=== PATIENT | female | born 1995 | race Caucasian/White ===

== ENCOUNTER 2018-06-30 18:51 | Emergency (ER) | payer OTHER ==
[2018-06-30] MEDS: valACYclovir HCL 500 MG TAB PO (21:36)
[2018-06-30] MEDS ORDERED: ONDANSETRON 4 MG ORAL DISINTEGRATING TAB (Q0162 PER 1MG) PO (21:45)
== END 2018-06-30 21:47 | disposition home or self-care (01) ==
LOC: M ED 18:51
DX: B02.9 Zoster without complications (principal); K21.9 Gastro-esophageal reflux disease without esophagitis; Z79.899 Other long term (current) drug therapy
CPT/HCPCS: 81025

== ENCOUNTER 2018-07-14 07:22 | Emergency (ER) | payer OTHER ==
[2018-07-14 08:22] LABS: HEMATOCRIT 41.1 % (36.0-47.0); HEMOGLOBIN 14.4 g/dl (12.0-15.5); MEAN CORPUSCULAR HEMOGLOBIN 31.8 pg (27.0-33.0); MEAN CORPUSCULAR VOLUME 90.7 fl (80.0-96.0); PLATELET COUNT, AUTOMATED 229 10^3/uL (150-450); RED BLOOD COUNT 4.53 10^6/uL (4.00-5.40); RED CELL DISTRIBUTION WIDTH 12.5 % (11.5-14.5); WHITE BLOOD COUNT 8.9 10^3/uL (4.0-10.0)
[2018-07-14 08:42] LABS: CONTROL LINE HCG INT CTR LINE PRESENT; HCG, SERUM QUALITATIVE NEGATIVE (NEGATIVE)
[2018-07-14 10:21] LABS: CHLAMYDIA DNA AMPLIFICATION NEGATIVE (NEGATIVE); GC DNA AMPLIFICATION NEGATIVE (NEGATIVE)
== END 2018-07-14 11:58 | disposition home or self-care (01) ==
LOC: M ED 07:22
DX: N83.202 Unspecified ovarian cyst, left side (principal); B02.9 Zoster without complications; Z87.42 Personal history of other diseases of the female genital tract; Z79.899 Other long term (current) drug therapy
CPT/HCPCS: 76856

== ENCOUNTER 2019-01-02 18:41 | Outpatient (CLI) | payer OTHER ==
[~2019-01-02] VITALS: Ht 154.9 cm; Wt 63.9 kg
[~2019-01-02 18:41] MED LIST: GABA-843 PO; KETO10TAB PO; OMEP40CA2 PO; VALA1TAB2 PO
[2019-01-02 18:55] VITALS: BP 101/62
[2019-01-02] MEDS ORDERED: MACR100C43 PO (19:02)
[2019-01-02] MEDS ORDERED: PRENTAB9 PO (19:02)
== END 2019-01-02 20:20 | disposition home or self-care (01) ==
LOC: M LDO 18:41
PROVIDERS: ATTEND Obstetrics & Gynecology
DX: O26.852 Spotting complicating pregnancy, second trimester (principal); Z3A.20 20 weeks gestation of pregnancy
CPT/HCPCS: G0378; G0463

== ENCOUNTER → 2019-01-26 | Outpatient (CLI) | payer OTHER ==
[~2019-01-26] MED LIST changes: +MACR100C43 PO; +PRENTAB9 PO
--- NOTE | 2019-01-27 05:23 | REP ---
Clinical: Anatomical evaluation. Comparison: None . Findings: Examination demonstrates a single live intrauterine in cephalic presentation. motion is identified by technologist. Placenta is noted anterior and grade grade zero without evidence for placenta previa or abruption. Amniotic fluid volume is normal. Cervix measures 3.3 cm in length and appears closed. Nuchal cord cannot be excluded. Gestational age by LMP 23 weeks 3 days with FREDI 05/22/2019 . Gestational age by current measurements 23 weeks 0-day with FREDI 05/25/2019 . FHR equals 147 beats per minute. BPD 5.7 cm 23 weeks 2 days HC 21.1 cm 23 weeks 1 day AC 18.4 cm 23 weeks 2 days FL 3.9 cm 22 weeks 3 days HL 3.7 cm 23 weeks 0 days HC/AC ratio 1.14 Estimated weight 549 grams ( 32nd percentile). Anatomical assessment demonstrates normal structures including cranium, choroid plexus, cavum, cerebellum/posterior fossa, lungs, diaphragm, stomach, cord insertion/three-vessel cord, kidneys/bladder, spine, and extremities. Impression: 1. Single live intrauterine in cephalic presentation demonstrating appropriate interval growth. 2. Limited evaluation of the facial features and heart/ventricular outflow tracts. Remainder of the anatomical assessment is complete and normal. 3. Nuchal cord cannot be excluded. Electronically Signed by Zack Wray MD 01/27/2019 05:15 A
== END ==
LOC: M RAD 09:42
PROVIDERS: ATTEND Advanced Practice Midwife
DX: Z34.82 Encounter for supervision of other normal pregnancy, second trimester (principal)

== ENCOUNTER → 2019-01-26 | Outpatient (CLI) | payer OTHER ==
[2019-01-26 13:09] LABS: CHLAMYDIA DNA AMPLIFICATION NEGATIVE (NEGATIVE); GC DNA AMPLIFICATION NEGATIVE (NEGATIVE)
[2019-01-27 10:00] LABS: HEPATITIS C VIRUS ABY INDEX < 0.0 INDEX (<0.8); HIV 1&2 SCREEN CENTAUR NEGATIVE (NEGATIVE)
== END ==
LOC: M LAB 10:21
PROVIDERS: ATTEND Advanced Practice Midwife
DX: Z34.82 Encounter for supervision of other normal pregnancy, second trimester (principal); Z3A.23 23 weeks gestation of pregnancy

== ENCOUNTER → 2019-02-17 | Outpatient (CLI) | payer OTHER ==
[2019-02-17 13:24] LABS: BASO # 0.1 10^3/uL (0.0-0.2); BASO % 0.6 % (0.0-1.0); EOS # 0.1 10^3/uL (0.0-0.50); EOS % 0.7 % (0.0-3.0); HEMATOCRIT 36.5 % (36.0-47.0); HEMOGLOBIN 12.4 g/dl (12.0-15.5); LYMPH # 1.8 10^3/uL (1.5-6.5); LYMPH % 15.1 % (24.0-44.0); MEAN CORPUSCULAR VOLUME 94.3 fl (80.0-96.0); MONO # 0.9 10^3/uL (0.0-0.8); MONO % 7.1 % (0.0-5.0); NEUTROPHILS # 9.1 10^3/uL (1.8-7.7); NEUTROPHILS % 74.2 % (36.0-66.0); PLATELET COUNT, AUTOMATED 145 10^3/uL (150-450); RED BLOOD COUNT 3.87 10^6/uL (4.00-5.40); WHITE BLOOD COUNT 12.2 10^3/uL (4.0-10.0)
== END ==
LOC: M LAB 11:50
PROVIDERS: ATTEND Advanced Practice Midwife
DX: Z34.02 Encounter for supervision of normal first pregnancy, second trimester (principal); Z3A.00 Weeks of gestation of pregnancy not specified

== ENCOUNTER → 2019-02-17 | Outpatient (REF) | payer OTHER | LOC: M LAB REF 13:02 | PROVIDERS: ATTEND Advanced Practice Midwife | DX: Z34.02 Encounter for supervision of normal first pregnancy, second trimester (principal) ==

== ENCOUNTER → 2019-02-19 | Outpatient (CLI) | payer OTHER ==
--- NOTE | 2019-02-19 15:43 | REP ---
Clinical: Anatomical evaluation. Comparison: 01/26/2019 . Findings: Examination demonstrates a single live intrauterine in cephalic presentation. motion is identified by technologist. Placenta is noted anterior and grade 09/00 without evidence for placenta previa or abruption. Amniotic fluid volume is normal. Cervix measures 2.2 cm in length and appears closed. Nuchal cord cannot be excluded Gestational age by LMP 26 weeks 6 days with FREDI 05/22/2019 . Gestational age by current measurements 27 weeks 2 days with FREDI 05/19/2019 . FHR equals 134 beats per minute. Estimated weight 1027 grams ( 47th percentile). Anatomical assessment demonstrates normal structures including cranium, choroid plexus, cavum, cerebellum/posterior fossa, facial features, lungs, four-chamber heart/ventricular outflow tracts, diaphragm, stomach, cord insertion/three-vessel cord, kidneys/bladder, spine, and extremities. Impression: 1. Single live intrauterine in cephalic presentation demonstrating appropriate interval growth. 2. Cervix measures 2.2 cm in length with a closed internal os. 3. Nuchal cord cannot be excluded. 4. With the exception of incomplete evaluation of the the facial profile, anatomical assessment is complete and normal. Electronically Signed by Zack Wray MD 02/19/2019 03:34 P
== END ==
LOC: M RAD 14:35
PROVIDERS: ATTEND Advanced Practice Midwife
DX: Z34.02 Encounter for supervision of normal first pregnancy, second trimester (principal); Z36.2 Encounter for other antenatal screening follow-up; Z3A.26 26 weeks gestation of pregnancy

== ENCOUNTER 2019-04-09 05:21 | Inpatient (IN) | payer OTHER ==
[~2019-04-09] VITALS: Ht 154.9 cm; Wt 75.4 kg
[2019-04-09] VITALS (9 sets, daily range): BP systolic 104–122; BP diastolic 56–83
[2019-04-09] MEDS ORDERED: ZANTTAB PO (05:52)
[2019-04-09] MEDS ORDERED: OXYTOCIN 30 UNITS IN 0.9% NaCl 500ML IV BAG (J2590) As Ordered ONE (07:07)
[2019-04-09] MEDS ORDERED: PENICILLIN G POTASSIUM IV 5 MU in D5W MINI-BAG PLUS 100 ML IV STA (07:13)
[2019-04-09] MEDS ORDERED: LACTATED RINGER'S 1000 ML IV STA (07:13)
[2019-04-09] MEDS ORDERED: LR 1,000 ML IV SCH ×2 (07:13→07:50)
--- NOTE | 2019-04-09 07:13 | NUR ---
L&D H&P HPI: 23 year old at weeks estimated gestation. Expected date of confinement: 05/22/19. dated by a 7 week ultrasound. Presents today complaining of b loody show and painful uterine contractions. Denies loss of fluid. Reports regular movement. course uncomplicated thus far. labs: Blood type O+, antibody screen negative, rubella immune, VDRL nonreactive , hepatitis B surface antigen negative, HIV negative, hepatitis C an tibody negative, GC/CT negative, aneuploidy/maternal serum screening: none, 1 hour glucose challenge test: 115, GBS unknown. Vaccinations: Tdap 03/22/19 Radiology/OB US: no anomalies or placental abnormalities detected. History Past medical history: none Surgical history: D&C, l/s for ovarian cyst, appendectomy, tonsillectomy Medications: PNV Allergies: NKDA WOOL BROKER history: no dysplasia or STI/gHSV OB history: G1 Social history: no t/e/d Family history: HTN, heart disease, RA Objective Vitals: Normotensive, normal heart rate, afebrile Heart: Regular rate and rhythm. No murmurs, rubs or gallops. Lungs: Clear to auscultation bilaterally. No wheezes, crackles, rales or rhonchi. Abdomen: Uterine fundal height consistent with dates. No guarding or rebound tenderness. Extremities: No clubbing, cyanosis or edema. Normal deep tendon reflexes. Sterile vaginal exam: 10 cm, 100 %effacement, +1station, cephalic, intact External monitoring: heart rate category 1 Tocodynamometer: contractions occurring every 2-4 min Assessment/Plan 23 year old at 33+6 weeks gestation. Diagnosis: active labor. Reassuring and maternal status. -Admit to labor and delivery with routine labs and orders -External monitoring and tocodynamometer -NICU and anesthesia notified -Anticipate delivery soon. Dr. Robert Clemente, DO, FACOG
[2019-04-09 07:32] LABS: HEMATOCRIT 37.1 % (36.0-47.0); HEMOGLOBIN 12.8 g/dl (12.0-15.5); MEAN CORPUSCULAR HEMOGLOBIN 32.2 pg (27.0-33.0); MEAN CORPUSCULAR HGB CONC 34.5 g/dl (32.0-36.5); MEAN CORPUSCULAR VOLUME 93.5 fl (80.0-96.0); PLATELET COUNT, AUTOMATED 161 10^3/uL (150-450); RED BLOOD COUNT 3.97 10^6/uL (4.00-5.40); WHITE BLOOD COUNT 15.5 10^3/uL (4.0-10.0)
[2019-04-09] MEDS ORDERED: OXYTOCIN DRIP 30 UNITS in APPROPRIATE DILUENT 1 EA IV SCH (07:50)
[2019-04-09] MEDS ORDERED: ONDANSETRON 4MG/2ML VIAL (J2405) IV PRN (08:00)
[2019-04-09] MEDS ORDERED: LIDOCAINE 1% MDV 20ML VIAL INFIL ONE (08:00)
[2019-04-09] MEDS ORDERED: ACETAMINOPHEN TAB 650MG DOSE (2X325MG) PO PRN (08:00)
[2019-04-09] MEDS ORDERED: MEASLES,MUMPS,RUBELLA VACCINE INJ (MMR-II) (90707) SC SCH (08:00)
[2019-04-09] MEDS ORDERED: DOCUSATE SODIUM 100 MG CAP PO PRN (08:00)
[2019-04-09] MEDS ORDERED: PROMETHAZINE 25 MG TAB PO PRN (08:00)
[2019-04-09] MEDS ORDERED: RHOGAM 300 MCG (1500 IU) INJ (J2790) IM SCH (08:00)
[2019-04-09] MEDS ORDERED: DIBUCAINE 1% OINTMENT 30GM TOP PRN (08:00)
--- NOTE | 2019-04-09 08:06 | NUR ---
Delivery note Spontaneous vaginal delivery labor, spontaneous Estimated gestational age at delivery: 33+6 weeks The active phase and second stage of labor progressed in normal fashion without epidural anesthesia. Patient did not receive Pitocin labor augmentation. She did not received a full course of GBS prophylaxis. The head delivered left occiput anterior and restituted left occiput transverse. A tight nuchal cord was noted. The anterior shoulder delivered with gentle downward guidance and the remainder of the body delivered with ease. The nuchal cord was reduced. Cord clamping was delayed for approximately 1 minute after delivery. After doubly clamping the cord, I cut the cord. The was placed on the patient's chest for immediate bonding. Capac data: Apgars 7 and 8. weight 2128 grams 4 pounds, 11 ounces. Time of delivery: 728. Sex: Male. The third stage of labor was actively managed with a bolus of IV Pitocin (30 units in 500 mL of normal saline). The placenta delivered completely intact with no missing cotyledons at 0733. A three-vessel cord with a central insertion was noted. After delivery of the placenta, the uterine fundus was approximately 2 c m below the umbilicus and firm. IV Pitocin was continued to maintain uterine tone. A normal, low level of uterine bleeding was noted. The cervix, vagina, vulva and perineum were inspected for lacerations. A first degree laceration was noted. This was repaired with 3-0 Vicryl in typical fashio n. Excellent hemostasis was noted. Estimated blood loss: 200ml All sponges, needles, and instruments were accounted for per LOSS PREVENTION/SAFETY DISTRICT MANAGER department protocol. Robert Clemente D.O., F.A.C.OElma.
[2019-04-09] MEDS: IBUPROFEN 800 MG TAB PO PRN (08:21)
[2019-04-09] MEDS: PRENATAL VITAMINS CHEWABLE TABLET PO SCH (09:00)
[2019-04-09 10:10] LABS: AMPHETAMINES URINE REFLEX NEGATIVE (NEGATIVE); BARBITURATES URINE REFLEX NEGATIVE (NEGATIVE); BENZODIAZEPINES URINE REFLEX NEGATIVE (NEGATIVE); CANNABINOIDS URINE REFLEX NEGATIVE (NEGATIVE); COCAINE METABOLITE URINE REFLE NEGATIVE (NEGATIVE); METHADONE URINE REFLEX NEGATIVE (NEGATIVE); OPIATES URINE REFLEX NEGATIVE (NEGATIVE); PHENCYCLIDINE URINE REFLEX NEGATIVE (NEGATIVE)
[2019-04-09] MEDS: IBUPROFEN 600 MG TAB PO PRN ×2 (17:10→22:18)
[2019-04-10] MEDS: ACETAMINOPHEN 500 MG TAB PO PRN ×3 (02:50→22:25)
[2019-04-10] MEDS: IBUPROFEN 600 MG TAB PO PRN ×3 (05:29→18:45)
[2019-04-10 06:00] VITALS: BP 108/64
[2019-04-10] MEDS: PRENATAL VITAMINS CHEWABLE TABLET PO SCH (08:56)
[2019-04-10 18:18] VITALS: BP 115/68
[2019-04-10] MEDS: IBUPROFEN 800 MG TAB PO PRN (23:55)
[2019-04-11 06:41] VITALS: BP 122/58
[2019-04-11] MEDS: ACETAMINOPHEN 500 MG TAB PO PRN (06:43)
[2019-04-11] MEDS: PRENATAL VITAMINS CHEWABLE TABLET PO SCH (08:13)
[2019-04-11] MEDS: IBUPROFEN 800 MG TAB PO PRN (08:13)
[2019-04-11] MEDS ORDERED: MAPA500T2 PO (09:55)
[2019-04-11] MEDS ORDERED: IBUP-1114 PO (09:55)
== END 2019-04-11 10:30 | disposition home or self-care (01) | DRG 807 ==
LOC: M LDO 05:21 → M LDI 06:44 → M OBS 09:35
PROVIDERS: ADMIT Obstetrics & Gynecology; ATTEND Obstetrics & Gynecology
PROC: 10E0XZZ Delivery of Products of Conception, External Approach (ICD-10-PCS; principal; 2019-04-09)
PROC: 0HQ9XZZ Repair Perineum Skin, External Approach (ICD-10-PCS; 2019-04-09)
DX: O60.14X0 Preterm labor third trimester with preterm delivery third trimester, not applicable or unspecified (principal); Z37.0 Single live birth; Z3A.33 33 weeks gestation of pregnancy; O70.0 First degree perineal laceration during delivery; O69.89X0 Labor and delivery complicated by other cord complications, not applicable or unspecified

== ENCOUNTER → 2019-07-11 | Outpatient (CLI) | payer OTHER ==
[~2019-07-11] MED LIST changes: +IBUP-1114 PO; +MAPA500T2 PO; +ZANT150T40 PO
--- NOTE | 2019-07-12 12:10 | REP ---
LEFT FIFTH FINGER SERIES: 07/11/2019. Clinical history: Pain left fifth finger. Findings: Four views show metacarpal and phalanges of the fifth digit without fracture or focal lesion. There is no avulsion. IP and MCP joints are intact. The adjacent digits and carpal bones are unremarkable. Impression: 1. No visible fracture, avulsion, foreign body or other acute finding about the left fifth finger. Electronically Signed by Chandu Trejo MD 07/12/2019 12:24 P
== END ==
LOC: M WUC 10:58
PROVIDERS: ATTEND Physician Assistant
DX: M79.645 Pain in left finger(s) (principal)

== ENCOUNTER 2019-07-24 19:42 | Emergency (ER) | payer OTHER ==
[~2019-07-24] VITALS: Ht 154.9 cm; Wt 65.9 kg
[2019-07-24 21:18] LABS: BASO # 0.1 10^3/uL (0.0-0.2); BASO % 0.9 % (0.0-1.0); EOS # 0.1 10^3/uL (0.0-0.50); EOS % 1.2 % (0.0-3.0); HEMATOCRIT 37.9 % (36.0-47.0); LYMPH # 1.6 10^3/uL (1.5-6.5); LYMPH % 27.5 % (24.0-44.0); MEAN CORPUSCULAR HEMOGLOBIN 30.1 pg (27.0-33.0); MEAN CORPUSCULAR HGB CONC 34.3 g/dl (32.0-36.5); MEAN CORPUSCULAR VOLUME 87.7 fl (80.0-96.0); MONO # 0.5 10^3/uL (0.0-0.8); MONO % 9.2 % (0.0-5.0); NEUTROPHILS # 3.4 10^3/uL (1.8-7.7); NEUTROPHILS % 60.8 % (36.0-66.0); PLATELET COUNT, AUTOMATED 228 10^3/uL (150-450); RED BLOOD COUNT 4.32 10^6/uL (4.00-5.40); WHITE BLOOD COUNT 5.6 10^3/uL (4.0-10.0)
[2019-07-24 21:31] LABS: ALT/SGPT 27 U/L (12-78); BILIRUBIN,TOTAL 0.3 MG/DL (0.2-1.0); BLOOD UREA NITROGEN 13 MG/DL (7-18); CALCIUM LEVEL 9.1 MG/DL (8.5-10.1); CARBON DIOXIDE LEVEL 31 MEQ/L (21-32); CHLORIDE LEVEL 107 MEQ/L (98-107); CREATININE FOR GFR 0.74 MG/DL (0.55-1.30); GLOMERULAR FILTRATION RATE > 60.0 (>60); GLUCOSE, FASTING 158 MG/DL (70-100); POTASSIUM SERUM 3.6 MEQ/L (3.5-5.1); SODIUM LEVEL 143 MEQ/L (136-145); TOTAL PROTEIN 7.1 GM/DL (6.4-8.2)
[2019-07-24] MEDS ORDERED: FLON1SPR NARES (22:02)
[2019-07-24] MEDS ORDERED: MUCI30TA5 PO (22:02)
[2019-07-24] MEDS ORDERED: ONDA4TAB6 PO (22:02)
[2019-07-24] MEDS ORDERED: PSEU30TA85 PO (22:02)
[2019-07-24] MEDS ORDERED: ONDANSETRON 4 MG ORAL DISINTEGRATING TAB (Q0162 PER 1MG) PO ONE (22:15)
[2019-07-24 22:43] VITALS: BP 117/68
== END 2019-07-24 22:46 | disposition home or self-care (01) ==
LOC: M ED 19:42
DX: J06.9 Acute upper respiratory infection, unspecified (principal); H69.90 Unspecified Eustachian tube disorder, unspecified ear; Z79.899 Other long term (current) drug therapy
CPT/HCPCS: 36415; 80053; 84702; 85025; 99284; Q0162

== ENCOUNTER 2019-08-29 15:41 | Emergency (ER) | payer OTHER ==
[~2019-08-29] VITALS: Ht 154.9 cm; Wt 63.6 kg
[~2019-08-29 15:41] MED LIST changes: +FLON1SPR NARES; +MUCI30TA5 PO; -OMEP40CA2 PO; +OMEP40CA97 PO; +ONDA4TAB6 PO; +PSEU30TA85 PO
[2019-08-29 16:54] LABS: BASO # 0.1 10^3/uL (0.0-0.2); EOS # 0.2 10^3/uL (0.0-0.5); EOS % 2.9 % (0.0-3.0); HEMATOCRIT 36.5 % (36.0-47.0); HEMOGLOBIN 12.5 g/dl (12.0-15.5); LYMPH # 2.4 10^3/uL (1.5-5.0); LYMPH % 33.7 % (24.0-44.0); MEAN CORPUSCULAR HEMOGLOBIN 30.5 pg (27.0-33.0); MEAN CORPUSCULAR HGB CONC 34.2 g/dl (32.0-36.5); MONO # 0.7 10^3/uL (0.0-0.8); MONO % 9.8 % (0.0-5.0); NEUTROPHILS # 3.7 10^3/uL (1.5-8.5); NEUTROPHILS % 52.5 % (36.0-66.0); PLATELET COUNT, AUTOMATED 231 10^3/uL (150-450)
[2019-08-29] MEDS ORDERED: KETOROLAC 30 MG/ML VIAL (J1885) IV ONE (17:15)
[2019-08-29] MEDS ORDERED: NS 1,000 ML IV ONE (17:15)
[2019-08-29 18:28] VITALS: BP 116/72
[2019-08-29] MEDS ORDERED: KETO10TAB PO (20:12)
--- NOTE | 2019-08-29 20:13 | REPVR ---
PROCEDURE INFORMATION: Exam: US Pelvis Complete, Transabdominal and US Pelvis, Transvaginal Exam date and time: 08/29/2019 6:40 PM Clinical history: 24 years old, female; Menstruation abnormalities; Excessive menstruation; With irregular cycle; Pelvic pain; Additional info: Vag bleeding 2 wks, llq pain, HX ov cyst surgical TECHNIQUE: Imaging protocol: Real-time transabdominal and transvaginal pelvic ultrasound (complete) with image documentation. Transvaginal imaging was used for better evaluation of the endometrium and adnexa. COMPARISON: US PELVIC NON-OB COMPLETE 07/14/2018 10:01 AM FINDINGS: Uterus/cervix: 7.7 x 3.3 x 5.9 cm. Normal endometrial thickness, measuring approximately 11 mm. Right ovary: 3.1 x 2.5 x 2 cm. Multiple follicles. No mass. Normal ovarian blood flow. Left ovary: 2.9 x 1.9 x 1.7 cm. Multiple follicles. No mass. Normal ovarian blood flow. Free fluid: Trace nonspecific free pelvic fluid, likely physiologic. Bladder: Normal. IMPRESSION: No acute sonographic findings. Electronically signed by: Abraham Garland On 08/29/2019 20:13:35 PM
== END 2019-08-29 20:18 | disposition home or self-care (01) ==
LOC: M ED 15:41
DX: N92.1 Excessive and frequent menstruation with irregular cycle (principal); Z79.899 Other long term (current) drug therapy
CPT/HCPCS: 76830; 76856; 84702; 85025; 86901; 93976; 96361; 96374; 99284; J1885

== ENCOUNTER 2019-09-28 15:45 | Inpatient (IN) | payer OTHER ==
[~2019-09-28] VITALS: Ht 154.9 cm; Wt 65.0 kg
[2019-09-28 17:05] LABS: HEMATOCRIT 41.6 % (36.0-47.0); HEMOGLOBIN 13.8 g/dl (12.0-15.5); MEAN CORPUSCULAR HEMOGLOBIN 29.9 pg (27.0-33.0); MEAN CORPUSCULAR HGB CONC 33.2 g/dl (32.0-36.5); MEAN CORPUSCULAR VOLUME 90.2 fl (80.0-96.0); PLATELET COUNT, AUTOMATED 233 10^3/uL (150-450); RED BLOOD COUNT 4.61 10^6/uL (4.00-5.40)
[2019-09-28 17:27] LABS: HCG, SERUM QUALITATIVE POSITIVE (NEGATIVE)
[2019-09-28 17:29] LABS: AMPHETAMINES LEVEL URINE NEGATIVE (NEGATIVE); BARBITURATES URINE NEGATIVE (NEGATIVE); BENZODIAZEPINES URINE NEGATIVE (NEGATIVE); CANNABINOIDS URINE POSITIVE (NEGATIVE); COCAINE METABOLITE URINE NEGATIVE (NEGATIVE); METHADONE URINE NEGATIVE (NEGATIVE); OPIATES URINE NEGATIVE (NEGATIVE); PHENCYCLIDINE URINE NEGATIVE (NEGATIVE)
[2019-09-28 17:41] LABS: ACETAMINOPHEN LEVEL < 2.0 UG/ML (10.0-30.0); ALBUMIN 4.1 GM/DL (3.2-5.2); ALT/SGPT 20 U/L (12-78); BILIRUBIN,DIRECT < 0.1 MG/DL (0.0-0.2); BILIRUBIN,TOTAL 0.3 MG/DL (0.2-1.0); BLOOD UREA NITROGEN 10 MG/DL (7-18); CALCIUM LEVEL 8.6 MG/DL (8.5-10.1); CARBON DIOXIDE LEVEL 26 MEQ/L (21-32); CHLORIDE LEVEL 107 MEQ/L (98-107); CREATININE FOR GFR 0.67 MG/DL (0.55-1.30); ETHYL ALCOHOL (ETHANOL) < 0.003 % (0.000-0.010); GLOMERULAR FILTRATION RATE > 60.0 (>60); GLUCOSE, FASTING 81 MG/DL (70-100); SALICYLATE LEVEL < 1.7 MG/DL (5.0-30.0); SODIUM LEVEL 139 MEQ/L (136-145); THYROID STIMULATING HORMONE 0.468 uIU/ML (0.358-3.740); TOTAL PROTEIN 7.1 GM/DL (6.4-8.2)
[2019-09-28] MEDS ORDERED: PRENTAB9 PO (18:52)
[2019-09-28] MEDS ORDERED: MOM 30ML SUSPENSION UDC PO PRN (19:30)
[2019-09-28] MEDS ORDERED: MAALOX 30 ML SUSP *UDC PO PRN (19:30)
[2019-09-28 21:09] VITALS: BP 113/66
[2019-09-28] MEDS: ACETAMINOPHEN TAB 650MG DOSE (2X325MG) PO PRN (22:38)
[2019-09-29 06:45] VITALS: BP 94/47
[2019-09-29] MEDS: PRENATAL VITAMINS CHEWABLE TABLET PO SCH (08:23)
[2019-09-29] MEDS ORDERED: INFLUENZA QUADRIVALENT PF VACCINE 0.5ML SYRINGE (90686) IM ONE (09:00)
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
--- NOTE | 2019-09-29 10:25 | HPEPDOC ---
General Date of Admission Sep 28, 2019 at 19:22 Date of Service: Sep 29, 2019 Chief Complaint The patient is a 24-year-old female admitted with a reason for visit of E. History of Present Illness 24 years old white female with past medical history of migraine headache, 2, para 1, aborta 0, is admitted to mental health inpatient unit. Plans of suicidal ideation and depression. Rashes. Denies any medical complaints including chest pain, shortness breath, nausea, vomiting, diarrhea, headache Home Medications Scheduled No.137/Iron/Folic Acd ( Vitamin Tablet) 1 Each Tablet, 1 TAB PO QHS, (Reported) Allergies Coded Allergies: No Known Allergies (Unverified , 04/09/19) Past Medical History Medical History Migraine headache Surgical History D&C, exploratory laparotomy, appendectomy, tonsillectomy, adenectomy Family History Significant Family History: Other (mother had hypertension) Social History * Smoker: Denies Alcohol: Denies Drugs: denies A-FIB/CHADSVASC A-FIB History Current/History of A-Fib/PAF?: No Review of Systems Constitutional: Denies: Chills, Fever, Malaise, Night Sweats, Weakness, Fatigue, Weight Loss, Lethargy, Other Eyes: Denies: Pain, Vision change, Conjunctivae inflammation, Eyelid inflammation, Redness, Other ENT: Denies: Head Aches, Ear Pain, Dysphagia, Sinus Congestion, Post Nasal Drip, Sore Throat, Epistaxis, Other Symptoms Skin: Denies: Rash, Lesions, Jaundice, Bruising, Itching, Dry, Breakdown, Nail Changes, Other Pulmonary: Denies: Dyspnea, Cough, Pleuritic Chest Pain, Other Symptoms Cardiovascular: Denies: Chest Pain, Palpitations, Orthopnea, Paroxysmal Noc. Dyspnea, Edema, Lt Headedness, Other Symptoms Gastrointestinal: Denies: Nausea, Vomiting, Abdominal Pain, Diarrhea, Constipation, Melena, Hematochezia, Other Symptoms Genitourinary: Denies: Dysuria, Frequency, Incontinence, Hematuria, Retention, Other Symptoms Hematologic: Denies: Bruising, Bleeding Excessively, Petecchia, Purpura, Enlarged Lymph Nodes, Other Hematologic Endocrine: Denies: Polydipsia, Polyphagia, Polyuria, Heat Intolerance, Cold Intolerance, Other Endocrine Sx Musculoskeletal: Denies: Neck Pain, Back Pain, Shoulder Pain, Arm Pain, Hand Pain, Leg Pain, Foot Pain, Joint Pain, Muscle Pain, Spasms, Other Symptoms Neurological: Denies: Weakness, Numbness, Incoordination, Change in speech, Confusion, Seizures, Other Symptoms Psych: Denies: Mood Normal, Anxiety, Depression, Memory Issues, Thoughts of Self Harm, Anger, Thoughts of Harming Other, Other Psych Physical Examination General Exam: Positive: Alert, Cooperative Eye Exam: Positive: PERRLA, Conjunctiva & lids normal ENT Exam: Positive: Atraumatic, Mucous membr. moist/pink Neck Exam: Positive: Supple Chest Exam: Positive: Clear to auscultation, Normal air movement Heart Exam: Positive: Rate Normal, Normal S1, Normal S2 Abdomen Exam: Positive: Normal bowel sounds, Soft Extremity Exam: Positive: Normal pulses Skin Exam: Positive: Nl turgor and temperature Neuro Exam: Positive: Strength at 5/5 X4 ext, Cranial Nerves 3-12 NL Psych Exam: Positive: Mood NL, Oriented x 3 Vital Signs Vital Signs Date Time Temp Pulse Resp B/P (MAP) Pulse Ox O2 Delivery O2 Flow Rate FiO2 09/29/19 06:45 98.4 79 12 94/47 (63) 09/28/19 21:09 97 Room Air Laboratory Data Labs 24H Laboratory Tests 2 09/28/19 16:51: Nucleated Red Blood Cells % (auto) 0.0, Anion Gap 6L, Glomerular Filtration Rate > 60.0, Calcium Level 8.6, Total Bilirubin 0.3, Direct Bilirubin < 0.1, Aspartate Amino Transf (AST/SGOT) 11, Alanine Aminotransferase (ALT/SGPT) 20, Alkaline Phosphatase 70, Total Protein 7.1, Albumin 4.1, Albumin/Globulin Ratio 1.37, Thyroid Stimulating Hormone (TSH) 0.468, Human Chorionic Gonadotropin, Qual POSITIVEA, Salicylates Level < 1.7L, Acetaminophen Level < 2.0L, Ethyl Alcohol Level < 0.003 09/28/19 16:53: Urine Opiates Screen NEGATIVE, Urine Methadone Screen NEGATIVE, Urine Barbiturates Screen NEGATIVE, Urine Phencyclidine Screen NEGATIVE, Urine Amphetamines Screen NEGATIVE, Urine Benzodiazepines Screen NEGATIVE, Urine Cocaine Metabolite Screen NEGATIVE, Urine Cannabinoids Screen POSITIVEH CBC/BMP Laboratory Tests 09/28/19 16:51 Problems (1) Migraine Status: Chronic Problem Text: Patient has a history of migraine headache, but is clinically stable No home medications We'll clinically monitor patient and treat accordingly (2) Depression with suicidal ideation Status: Acute Problem Text: Patient has been admitted to inpatient mental health unit Individual and group counseling Meds as per psychiatry (3) First trimester Status: Acute Problem Text: This is patient's second . First . She had a normal vaginal delivery and child is 5 months old and again she is 6 weeks now. Continue vitamins Further care as per outpatient PYTHON ENGINEER Plan / VTE VTE Prophylaxis Ordered?: No VTE Exclusion Mechanical Proph: Low Risk for VTE VTE Exclusion Pharmacological: At Low Risk for VTE MALCOLM HESTER MD Sep 29, 2019 10:25
[2019-09-29] MEDS: ACETAMINOPHEN TAB 650MG DOSE (2X325MG) PO PRN (18:03)
[2019-09-29 18:07] VITALS: BP 110/57
[2019-09-29] MEDS: diphenhydrAMINE 50 MG CAP PO PRN (22:05)
[2019-09-30 06:22] VITALS: BP 95/46
[2019-09-30 06:54] LABS: BASO # 0.1 10^3/uL (0.0-0.2); BASO % 0.8 % (0.0-1.0); EOS # 0.2 10^3/uL (0.0-0.5); EOS % 2.8 % (0.0-3.0); HEMATOCRIT 40.7 % (36.0-47.0); LYMPH # 2.9 10^3/uL (1.5-5.0); LYMPH % 33.3 % (24.0-44.0); MEAN CORPUSCULAR HEMOGLOBIN 30.9 pg (27.0-33.0); MEAN CORPUSCULAR HGB CONC 34.4 g/dl (32.0-36.5); MEAN CORPUSCULAR VOLUME 89.8 fl (80.0-96.0); MONO # 0.8 10^3/uL (0.0-0.8); MONO % 9.3 % (0.0-5.0); NEUTROPHILS # 4.6 10^3/uL (1.5-8.5); NEUTROPHILS % 53.3 % (36.0-66.0); PLATELET COUNT, AUTOMATED 224 10^3/uL (150-450); RED BLOOD COUNT 4.53 10^6/uL (4.00-5.40); WHITE BLOOD COUNT 8.6 10^3/uL (4.0-10.0)
[2019-09-30 07:28] LABS: ALBUMIN 3.8 GM/DL (3.2-5.2); ALT/SGPT 21 U/L (12-78); BILIRUBIN,TOTAL 0.3 MG/DL (0.2-1.0); BLOOD UREA NITROGEN 12 MG/DL (7-18); CALCIUM LEVEL 8.9 MG/DL (8.5-10.1); CARBON DIOXIDE LEVEL 26 MEQ/L (21-32); CHLORIDE LEVEL 106 MEQ/L (98-107); CREATININE FOR GFR 0.67 MG/DL (0.55-1.30); FREE THYROXINE INDEX 3.1 % (1.3-4.8); GLOMERULAR FILTRATION RATE > 60.0 (>60); GLUCOSE, FASTING 90 MG/DL (70-100); POTASSIUM SERUM 4.1 MEQ/L (3.5-5.1); SODIUM LEVEL 138 MEQ/L (136-145); T UPTAKE 35 % (30-39); THYROID STIMULATING HORMONE 0.776 uIU/ML (0.358-3.740); THYROXINE (T4) 8.8 UG/DL (4.5-12.0); TOTAL PROTEIN 7.1 GM/DL (6.4-8.2)
[2019-09-30] MEDS: PRENATAL VITAMINS CHEWABLE TABLET PO SCH (08:42)
[2019-09-30] MEDS ORDERED: INFLUENZA QUADRIVALENT PF VACCINE 0.5ML SYRINGE (90686) IM ONE (09:00)
[2019-09-30] MEDS: ACETAMINOPHEN TAB 650MG DOSE (2X325MG) PO PRN ×2 (15:14→22:31)
--- NOTE | 2019-09-30 16:36 | MHIPNPDOC ---
[facility] Progress Note Progress Note Inpatient Progress Note Abigail Spain MRN: N/A Date of : N/A Date of Service: 09/30/2019 History of Present Illness The patient, a 24-year-old woman with a history of depression presents to [facility] after getting into an argument with her of whom she has been for 2 years. She reports that she has a 6-month-old son, is currently again. She reports multiple psychosocial stressors in the form of arguments with her . She reportedly had made various statements that were concerning. Collateral information from her reveals that she was fairly depressed due to the stresses and had availability of gaining access to weapon. She has a history of overdose at 19. She had on presentation to the ER reported that she had passive SI, those coming and going. She reports increased anxiety, some erratic sleep and appetite, but no other consistent neurovegetative symptoms. Interval History The patient is met with today. She reports she is feeling much better. Her depre ssion has reduced significantly. She is interactive with others on the unit. She reports that she feels the exit from her stressful situation has done her good and that she is ready for discharge tomorrow. Staff notes that she is engaged, euthymic and gregarious. Review Of Systems Denies any physical complaints such as nausea, vomiting, constipation, diarrhea, chest pain, palpitations, shortness of breath, cough, dizziness, tremors. Psychotherapy None on this visit. Vital Signs Reviewed. Mental Status Examination General: Well dressed with good hygiene Speech: Spontaneous and fluid Thought processes: Linear and logical MSK: Smooth and coordinated gait, no signs of tremors or involuntary orofacial movements Thought content: Future orientated Abstract reasoning, and computation: Intact Description of associations: Intact Description of abnormal or psychotic thoughts: Denies any suicidal or homicidal ideation. Denies any auditory or visual hallucinations. Does not appear to be responding to internal stimuli. Does not appear to be endorsing any bizarre or paranoid ideation. 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 MDD, recurrent, severe, in full remission. Cannabis use disorder, unspecified. Assessment and Plan Adjustment disorder/MDD: Therapy only for now. Cannabis use disorder: Recommend abstinence due to . Disposition Discharge tomorrow. Time Spent 15 minutes. Vital Signs Vital Signs Date Time Temp Pulse Resp B/P (MAP) Pulse Ox O2 Delivery O2 Flow Rate FiO2 09/30/19 06:22 98.4 78 14 95/46 (62) 09/28/19 21:09 97 Room Air Laboratory Data 24H Labs Laboratory Tests 2 09/30/19 06:33: Immature Granulocyte % (Auto) 0.5, Neutrophils (%) (Auto) 53.3, Lymphocytes (%) (Auto) 33.3, Monocytes (%) (Auto) 9.3H, Eosinophils (%) (Auto) 2.8, Basophils (%) (Auto) 0.8, Neutrophils # (Auto) 4.6, Lymphocytes # (Auto) 2.9, Monocytes # (Auto) 0.8, Eosinophils # (Auto) 0.2, Basophils # (Auto) 0.1, Nucleated Red Blood Cells % (auto) 0.0, Anion Gap 6L, Glomerular Filtration Rate > 60.0, Calcium Level 8.9, Total Bilirubin 0.3, Aspartate Amino Transf (AST/SGOT) 11, A lanine Aminotransferase (ALT/SGPT) 21, Alkaline Phosphatase 77, Total Protein 7.1, Albumin 3.8, Albumin/Globulin Ratio 1.15, Thyroid Stimulating Hormone (TSH) 0.776, Free Thyroxine Index 3.1, Thyroxine (T4) 8.8, Triiodothyronine (T3) Uptake 35 CBC/BMP Laboratory Tests 09/30/19 06:33 Current Medications Current Medications Medications (Trade) Dose Ordered Sig/Preet Route PRN Reason Start Time Stop Time Status Last Admin Dose Admin Acetaminophen (Tylenol Tab) 650 mg Q6HP PRN PO HEADACHE or DISCOMFORT 09/28/19 19:30 09/30/19 15:14 Al Hydrox/Mg Hydrox/Simethicone (Mylanta) 30 ml Q4HP PRN PO HEARTBURN/INDIGESTION 09/28/19 19:30 Diphenhydramine HCl (Benadryl) 50 mg QHSP PRN PO SLEEP 09/28/19 19:30 09/29/19 22:05 Home Med (Med Rec Complete!) ASDIRECTED XX 09/28/19 19:00 09/28/19 18:53 DC Magnesium Hydroxide (Milk Of Magnesia) 30 ml DAILYPRN PRN PO CONSTIPATION 09/28/19 19:30 Prenat Multivit/ [place]/Iron/Folic Ac ( Vitamins) 1 tab DAILY PO 09/29/19 09:00 09/30/19 08:42 Allergies Coded Allergies: No Known Allergies (Unverified , 04/09/19) MARANDA BLACK DO Sep 30, 2019 16:36
[2019-09-30 18:00] VITALS: BP 106/56
--- NOTE | 2019-09-30 21:55 | REPVR ---
PROCEDURE INFORMATION: Exam: US , Transvaginal Exam date and time: 09/30/2019 9:18 PM Clinical history: 24 years old, female; complicated by abdominal or pelvic pain; Lower; First trimester; Gestational age or lmp: 08/17/19; ; Additional info: Abdominal cramping x 2 days TECHNIQUE: Imaging protocol: Real-time transvaginal obstetrical ultrasound of the maternal pelvis and a first trimester with image documentation. Transvaginal imaging was used for better evaluation of the fetus and adnexa. COMPARISON: US OBS FOLL UP OR REPEAT EACH GES 02/19/2019 2:44 PM FINDINGS: GESTATION: Gestation: 3 mm yolk sac. No pole is seen. Placenta: Small subchorionic bleed measuring 2.0 x 0.4 cm. BIOMETRY: Estimated gestational age: There is an intrauterine gestational sac with mean sac diameter of 11.9 mm for estimated gestational age of 6 weeks 0 days. IMPRESSION: 1. Small intrauterine gestational sac with estimated gestational age of 6 weeks 0 days. 2. No pole is seen. 3. Small subchorionic bleed. Electronically signed by: Surjit Bright On 09/30/2019 21:55:06 PM
[2019-09-30] MEDS: diphenhydrAMINE 50 MG CAP PO PRN (22:31)
[2019-10-01 06:41] VITALS: BP 97/50
--- NOTE | 2019-10-01 07:15 | MHDSPDOC ---
[facility] Discharge Summary Discharge Summary DATE OF ADMISSION: Sep 28, 2019 at 19:22 DATE OF DISCHARGE: 10/01/19 Abigail Spain Discharge Abigail Spain Select Gender MRN: N/A Date of : MM/DD/YYYY Date of Service: 10/01/2019 Diagnoses Adjustment disorder with disruption mood and conduct. MDD, recurrent, severe, in full remission. Cannabis use disorder, unspecified. History of Present Illness The patient, a 24-year-old woman with a history of depression presents to [facility] after getting into an argument with her of whom she has been for 2 years. She reports that she has a 6-month-old son, is currently again. She reports multiple psychosocial stressors in the form of arguments with her . She reportedly had made various statements that were concerning. Collateral information from her reveals that she was fairly depressed due to the stresses and had availability of gaining access to weapon. She has a history of overdose at 19. She had on presentation to the ER reported that she had passive SI, those coming and going. She reports increased anxiety, some erratic sleep and appetite, but no other consistent neurovegetative symptoms. Consultants Involved Hospitalist/PCP screening Treatment and Progress On The Unit The patient was admitted to the inpatient unit. She's notably 5 weeks . I discussed with her that the options of therapy only medications and the risks and benefits of different treatments. She elected to go therapy only as she did not want to place her unborn child at any increased risk of malformations. The patient engaged in group therapy and in the support environment from her stressors. Her depression resolved. Her fatigue, loss of interest all improved. She denied any suicidal or homicidal ideation when she had arrived to our unit and after 48 hours of observation did not meet involuntary criteria for extension of her admission and declined further voluntary admission. On the day of discharge, she had been denying any suicidal or homicidal ideation. Her depression resolved. She was not impaired by any mental illness so much so that she's unable to care for her basic needs. She's positive and able to engage in discharge planning and was discharged in good mouna. Discharge Assessment 24-year-old woman with a history of likely adjustment due to multiple psychosoc ial stressors. She resolves quickly on the inpatient unit suggesting that her current conflict with her is likely a provoking factor for her presentation. Mental Status Examination General: Well dressed with good hygiene Speech: Spontaneous and fluid Thought processes: Linear and logical MSK: Smooth and coordinated gait, no signs of tremors or involuntary orofacial movements Thought content: Future orientated Abstract reasoning, and computation: Intact Description of associations: Intact Description of abnormal or psychotic thoughts: Denies any suicidal or homicidal ideation. Denies any auditory or visual hallucinations. Does not appear to be responding to internal stimuli. Does not appear to be endorsing any bizarre or paranoid ideation. Judgment: fair Insight: fair Orientation: Alert and orientated 3 Cognition: Grossly normal Recent and remote memory: Intact Attention span and concentration: Intact Fund of knowledge: Adequate Mood: "okay" Affect: Euthymic with a full range Follow Up The social work team worked during the predischarge meeting in order to evaluate for further issues of lethality address them fully before discharge. They worked on safety planning with the patient's family members in order to ensure that the patient will have a safe and effective discharge. Time Spent The amount of time spent in the coordination of care for this patient was approximately 30 minutes. Vital Signs/I&Os Vital Signs Date Time Temp Pulse Resp B/P (MAP) Pulse Ox O2 Delivery O2 Flow Rate FiO2 10/01/19 06:41 98.2 78 12 97/50 (66) Room Air 09/28/19 21:09 97 Medications Scheduled No.137/Iron/Folic Acd ( Vitamin Tablet) 1 Each Tablet, 1 TAB PO QHS, (Reported) Allergies Coded Allergies: No Known Allergies (Unverified , 04/09/19) MARANDA BLACK DO Oct 01, 2019 07:15
[2019-10-01] MEDS: PRENATAL VITAMINS CHEWABLE TABLET PO SCH (08:31)
== END 2019-10-01 11:27 | disposition home or self-care (01) | DRG 882 ==
LOC: M ED 15:45 → M ED INP 19:22 → M PSY 20:56
PROVIDERS: ADMIT Psychiatry & Neurology Psychiatry; ATTEND Psychiatry & Neurology Addiction Medicine
DX: F43.25 Adjustment disorder with mixed disturbance of emotions and conduct (principal); F33.40 Major depressive disorder, recurrent, in remission, unspecified; F12.10 Cannabis abuse, uncomplicated; Z63.0 Problems in relationship with spouse or partner; Z62.811 Personal history of psychological abuse in childhood; G43.709 Chronic migraine without aura, not intractable, without status migrainosus; Z3A.01 Less than 8 weeks gestation of pregnancy; Z33.1 Pregnant state, incidental

== ENCOUNTER → 2019-11-10 | Outpatient (REF) | payer OTHER ==
[~2019-11-10] MED LIST changes: -VALA1TAB2 PO; +VALA1TAB64 PO
== END ==
LOC: M SFHCWAGY 09:58
PROVIDERS: ATTEND Advanced Practice Midwife
DX: N39.0 Urinary tract infection, site not specified (principal)

== ENCOUNTER → 2019-12-08 | Outpatient (CLI) | payer OTHER ==
[2019-12-08 12:52] LABS: BASO % 0.4 % (0.0-1.0); EOS # 0.1 10^3/uL (0.0-0.5); EOS % 0.6 % (0.0-3.0); HEMATOCRIT 39.8 % (36.0-47.0); HEMOGLOBIN 13.6 g/dl (12.0-15.5); LYMPH # 1.8 10^3/uL (1.5-5.0); LYMPH % 20.1 % (24.0-44.0); MEAN CORPUSCULAR HEMOGLOBIN 30.6 pg (27.0-33.0); MEAN CORPUSCULAR HGB CONC 34.2 g/dl (32.0-36.5); MEAN CORPUSCULAR VOLUME 89.6 fl (80.0-96.0); MONO # 0.6 10^3/uL (0.0-0.8); MONO % 6.1 % (0.0-5.0); NEUTROPHILS # 6.5 10^3/uL (1.5-8.5); NEUTROPHILS % 72.2 % (36.0-66.0); PLATELET COUNT, AUTOMATED 208 10^3/uL (150-450); RED BLOOD COUNT 4.44 10^6/uL (4.00-5.40); WHITE BLOOD COUNT 9.1 10^3/uL (4.0-10.0)
[2019-12-08 13:31] LABS: ALBUMIN 3.6 GM/DL (3.2-5.2); ALT/SGPT 16 U/L (12-78); BILIRUBIN,TOTAL 0.3 MG/DL (0.2-1.0); BLOOD UREA NITROGEN 5 MG/DL (7-18); CALCIUM LEVEL 8.5 MG/DL (8.5-10.1); CARBON DIOXIDE LEVEL 23 MEQ/L (21-32); CHLORIDE LEVEL 107 MEQ/L (98-107); CREATININE FOR GFR 0.59 MG/DL (0.55-1.30); FREE THYROXINE INDEX 4.2 % (1.3-4.8); GLOMERULAR FILTRATION RATE > 60.0 (>60); GLUCOSE, FASTING 71 MG/DL (70-100); POTASSIUM SERUM 3.8 MEQ/L (3.5-5.1); SODIUM LEVEL 138 MEQ/L (136-145); T UPTAKE 26 % (30-39); THYROID STIMULATING HORMONE 0.845 uIU/ML (0.358-3.740); THYROXINE (T4) 16.2 UG/DL (4.5-12.0); TOTAL PROTEIN 6.9 GM/DL (6.4-8.2)
== END ==
LOC: M LAB 12:15
PROVIDERS: ATTEND Advanced Practice Midwife
DX: O26.812 Pregnancy related exhaustion and fatigue, second trimester (principal)

== ENCOUNTER → 2019-12-30 | Outpatient (CLI) | payer OTHER ==
[~2019-12-30] MED LIST changes: +VALA1TAB5 PO; -VALA1TAB64 PO
--- NOTE | 2019-12-30 20:14 | REP ---
Clinical: Anatomical evaluation. Comparison: 09/30/2019 . Findings: Examination demonstrates a single live intrauterine in cephalic presentation. motion is identified by technologist. Placenta is noted posterior and grade I without evidence for placenta previa or abruption. Suggestion for a circumvallate placenta. Amniotic fluid volume is normal. Cervix measures cough 3.2 cm in length and appears closed. No evidence for nuchal cord. Gestational age by current measurements 18 weeks 3 days with FREDI 05/29/2020 . FHR equals 153 beats per minute. BPD 4.2 cm 18 weeks 5 days HC 15.2 cm 18 weeks 2 days AC 13.5 cm 19 weeks 0 days FL 2.8 cm 18 weeks 4 days HL 2.7 cm 18 weeks for the HC/AC ratio 1.13 Estimated weight 254 grams ( 55th percentile). Anatomical assessment demonstrates normal structures including cranium, choroid plexus, cavum, cerebellum/posterior fossa, facial features, lungs, four-chamber heart/left ventricular outflow tract, diaphragm, stomach, cord insertion/three-vessel cord, kidneys/bladder, spine, and extremities. Impression: 1. Single live intrauterine in cephalic presentation. 2. Possible posterior grade I circumvallate placenta 3. Limited evaluation of the right cardiac ventricular outflow tract. Remainder of the anatomical assessment is complete and normal.
== END ==
LOC: M WHC 08:30
PROVIDERS: ATTEND Advanced Practice Midwife
DX: Z36.89 Encounter for other specified antenatal screening (principal); Z3A.18 18 weeks gestation of pregnancy

== ENCOUNTER 2020-09-11 13:42 | Emergency (ER) | payer OTHER ==
[~2020-09-11] VITALS: Ht 154.9 cm; Wt 58.6 kg
[2020-09-11 14:10] LABS: BASO % 0.5 % (0.0-1.0); EOS # 0.1 10^3/uL (0.0-0.5); EOS % 1.5 % (0.0-3.0); HEMATOCRIT 44.6 % (36.0-47.0); HEMOGLOBIN 14.6 g/dl (12.0-15.5); LYMPH # 2.6 10^3/uL (1.5-5.0); LYMPH % 34.1 % (24.0-44.0); MEAN CORPUSCULAR HEMOGLOBIN 30.5 pg (27.0-33.0); MEAN CORPUSCULAR HGB CONC 32.7 g/dl (32.0-36.5); MEAN CORPUSCULAR VOLUME 93.1 fl (80.0-96.0); MONO # 0.6 10^3/uL (0.0-0.8); MONO % 7.3 % (0.0-5.0); NEUTROPHILS # 4.3 10^3/uL (1.5-8.5); NEUTROPHILS % 56.3 % (36.0-66.0); PLATELET COUNT, AUTOMATED 229 10^3/uL (150-450); RED BLOOD COUNT 4.79 10^6/uL (4.00-5.40); WHITE BLOOD COUNT 7.6 10^3/uL (4.0-10.0)
--- NOTE | 2020-09-11 15:53 | REPVR ---
PROCEDURE INFORMATION: Exam: US Pelvis Complete, Transabdominal and US Pelvis, Transvaginal Exam date and time: 09/11/2020 3:13 PM Age: 25 years old Clinical indication: Pelvic pain; Additional info: Left pelvic pain; R/O cyst. Vaginal bleeding since giving in April. TECHNIQUE: Imaging protocol: Real-time transabdominal and transvaginal pelvic ultrasound (complete) with image documentation. Transvaginal imaging was used for better evaluation of the endometrium, adnexa, and/or cervix. COMPARISON: 1. US PELVIC NON-OB COMPLETE 08/29/2019 6:39 PM 2. OBS COMPLETE US 12/30/2019 8:38:47 AM FINDINGS: Uterus/cervix: There are multiple prominent vessels in the myometrium posteriorly, of uncertain significance. The uterus measures 7.4 x 4.0 x 4.6 cm. There is heterogeneous but overall slightly hypoechoic material within the endometrial cavity in the lower uterine segment measuring up to 7 mm anterior-posterior by 20 mm craniocaudal. Most of this region has no internal color flow, with questionable color flow at the inferior extent on image 36. This may represent blood products in the endometrial canal, although given questionable color flow at the inferior extent, the less likely possibility of retained products of conception is not completely excluded. The endometrium measures 8 mm in thickness more proximally and is somewhat heterogeneous and ill-defined. Right adnexa: The right ovary is normal in size, measuring 3.5 x 1.9 x 3.0 cm, with volume of 10 cc. There is incidental note of a 1.5 cm simple dominant follicle in the right ovary. Left adnexa: Although the left ovary is normal in size and echogenicity, measuring 2.4 x 1.8 x 2.9 cm with volume of 7 cc, there is a small area adjacent to the left ovary with echogenicity similar to ovarian parenchyma, without internal color flow. This is of uncertain etiology. This could represent an exophytic complex cyst or exophytic solid mass arising from the left ovary, or could represent a small area of blood products. This measures 1.1 x 0.8 x 1.2 cm. This could alternatively represent a lobulated portion of the left ovary. Intraperitoneal space: There is a small amount of free fluid in the posterior cul-de-sac and in the adnexal regions bilaterally. Urinary bladder: The bladder is grossly unremarkable IMPRESSION: 1. 1.2 cm region of echogenicity similar to ovarian parenchyma adjacent to the left ovary, of uncertain etiology. This could represent an exophytic complex cyst or exophytic solid mass arising from the left ovary, or could represent a small area of blood products adjacent to the ovary. This could alternatively represent a lobulated portion of the left ovary. Suggest attention to this on follow-up ultrasound. Alternatively, MR pelvis could be considered for further evaluation. 2. Heterogeneous but overall slightly hypoechoic material in the endometrial cavity, most likely blood products in the endometrial canal. However, there is a small area of questionable color flow at the inferior extent, and the less likely possibility of retained products of conception is not completely excluded. Suggest attention to this on follow-up imaging. 3. Small amount of free fluid in the posterior cul-de-sac and in the adnexal regions bilaterally. Electronically signed by: Hamida Diana On 09/11/2020 15:53:57 PM
[2020-09-11 16:34] VITALS: BP 117/63
--- NOTE | 2020-09-12 19:55 | ED PDOC ---
Post-Departure Follow-Up pelvic us faxed to dr jose cruz ochoa for fu mg Kenna Christie MD Sep 12, 2020 19:55
== END 2020-09-11 16:37 | disposition home or self-care (01) ==
LOC: M ED 13:42
DX: N93.9 Abnormal uterine and vaginal bleeding, unspecified (principal); N83.209 Unspecified ovarian cyst, unspecified side

== ENCOUNTER 2020-09-12 14:24 | Emergency (ER) | payer OTHER ==
[~2020-09-12] VITALS: Ht 154.9 cm; Wt 59.5 kg
[2020-09-12 14:24] VITALS: BP 108/64
== END 2020-09-12 14:30 | disposition left against medical advice (07) ==
LOC: M ED 14:24
DX: Z53.21 Procedure and treatment not carried out due to patient leaving prior to being seen by health care provider (principal)

== ENCOUNTER → 2021-01-03 | Outpatient (CLI) | payer OTHER ==
[~2021-01-03] MED LIST changes: +GABA-282 PO; -GABA-843 PO
[2021-01-03 13:09] LABS: BASO # 0.1 10^3/uL (0.0-0.2); BASO % 0.7 % (0.0-1.0); EOS # 0.1 10^3/uL (0.0-0.5); EOS % 0.7 % (0.0-3.0); HEMATOCRIT 46.3 % (36.0-47.0); HEMOGLOBIN 15.4 g/dl (12.0-15.5); LYMPH # 2.3 10^3/uL (1.5-5.0); LYMPH % 33.2 % (24.0-44.0); MEAN CORPUSCULAR HEMOGLOBIN 30.9 pg (27.0-33.0); MEAN CORPUSCULAR HGB CONC 33.3 g/dl (32.0-36.5); MONO # 0.6 10^3/uL (0.0-0.8); MONO % 8.2 % (0.0-5.0); NEUTROPHILS % 56.6 % (36.0-66.0); PLATELET COUNT, AUTOMATED 222 10^3/uL (150-450); RED BLOOD COUNT 4.98 10^6/uL (4.00-5.40)
[2021-01-03 13:24] LABS: INR 1.01; PARTIAL THROMBOPLASTIN TIME 29.4 SECONDS (24.2-38.5); PROTHROMBIN TIME 13.5 SECONDS (12.5-14.3)
[2021-01-03 13:34] LABS: BLOOD UREA NITROGEN 17 MG/DL (7-18); CALCIUM LEVEL 9.6 MG/DL (8.5-10.1); CARBON DIOXIDE LEVEL 28 MEQ/L (21-32); CHLORIDE LEVEL 106 MEQ/L (98-107); CREATININE FOR GFR 0.76 MG/DL (0.55-1.30); GLOMERULAR FILTRATION RATE > 60.0 (>60); GLUCOSE, FASTING 94 MG/DL (70-100); POTASSIUM SERUM 4.2 MEQ/L (3.5-5.1); SODIUM LEVEL 140 MEQ/L (136-145)
[2021-01-03 13:38] LABS: HCG, SERUM QUALITATIVE NEGATIVE (NEGATIVE)
== END ==
LOC: M LAB 12:20
PROVIDERS: ATTEND Neurological Surgery
DX: Z01.818 Encounter for other preprocedural examination (principal); Z20.828 Contact with and (suspected) exposure to other viral communicable diseases; I67.1 Cerebral aneurysm, nonruptured
CPT/HCPCS: 36415; 80048; 81025; 84703; 85025; 85610; 85730; 96372; J1050; U0003

== ENCOUNTER → 2021-01-03 | Outpatient (CLI) | payer OTHER | LOC: M LABSMTC 09:39 | PROVIDERS: ATTEND Neurological Surgery | DX: Z20.828 Contact with and (suspected) exposure to other viral communicable diseases (principal); I67.1 Cerebral aneurysm, nonruptured ==

== ENCOUNTER → 2021-08-23 | Outpatient (REF) | payer OTHER ==
[~2021-08-23] MED LIST changes: +AMIT25TA17; +BOTO200I; +BUSP10TA; +HYDR-3363; +OMEP40CA4 PO; -OMEP40CA97 PO; -PSEU30TA85 PO; +PSEU30TA86 PO
[2021-08-23 16:01] LABS: GC DNA AMPLIFICATION NEGATIVE (NEGATIVE)
== END ==
LOC: M SFHCWAGY 13:37
PROVIDERS: ATTEND Obstetrics & Gynecology
DX: Z11.3 Encounter for screening for infections with a predominantly sexual mode of transmission (principal); Z12.4 Encounter for screening for malignant neoplasm of cervix

== ENCOUNTER → 2021-08-24 | Outpatient (CLI) | payer OTHER | LOC: M LABSMTC 09:06 | PROVIDERS: ATTEND Anesthesiology | DX: Z20.822 Contact with and (suspected) exposure to COVID-19 (principal) ==

== ENCOUNTER 2021-08-29 07:36 | Day surgery (SDC) | payer OTHER ==
[~2021-08-29] VITALS: Ht 154.9 cm; Wt 55.8 kg
[~2021-08-29 07:36] MED LIST changes: +LR 1,000 ML IV ONE
[2021-08-29] MEDS ORDERED: MIDAZOLAM INJ 2MG/2ML VIAL (J2250 PER 1MG) As Ordered ONE (08:03)
[2021-08-29] MEDS ORDERED: fentaNYL 100 MCG/2 ML INJECTION (J3010) As Ordered ONE (08:04)
[2021-08-29 08:47] LABS: HEMATOCRIT 43.1 % (36.0-47.0); HEMOGLOBIN 14.4 g/dl (12.0-15.5); MEAN CORPUSCULAR HEMOGLOBIN 30.8 pg (27.0-33.0); MEAN CORPUSCULAR HGB CONC 33.4 g/dl (32.0-36.5); MEAN CORPUSCULAR VOLUME 92.1 fl (80.0-96.0); PLATELET COUNT, AUTOMATED 226 10^3/uL (150-450); RED BLOOD COUNT 4.68 10^6/uL (4.00-5.40); WHITE BLOOD COUNT 8.6 10^3/uL (4.0-10.0)
[2021-08-29 08:52] LABS: HCG, SERUM QUALITATIVE NEGATIVE (NEGATIVE)
[2021-08-29] MEDS ORDERED: BUPIVACAINE HCL 0.25% 10ML VIAL As Ordered ONE (09:09)
[2021-08-29] MEDS ORDERED: KETOROLAC 60MG 2ML VIAL As Ordered ONE (09:39)
[2021-08-29] MEDS ORDERED: METOCLOPRAMIDE INJ 10MG/2ML VIAL (J2765 PER 1) As Ordered ONE (09:39)
[2021-08-29] MEDS ORDERED: ONDANSETRON 4MG/2ML VIAL As Ordered ONE (09:39)
[2021-08-29] MEDS ORDERED: SUGAMMADEX SODIUM 500 MG/5 ML VIAL (BRIDION) As Ordered ONE (09:40)
[2021-08-29] MEDS ORDERED: ACETAMINOPHEN 1000MG 100ML IV BTL (OFIRMEV) (J0131 PER 10MG) As Ordered ONE (09:40)
[2021-08-29] MEDS ORDERED: propofoL 200 MG/20 ML VIAL As Ordered ONE (09:40)
[2021-08-29] MEDS ORDERED: dexameTHASONE 4 MG/ML 1ML VIAL (J1100 PER 1MG) As Ordered ONE (09:40)
[2021-08-29] MEDS ORDERED: ROCURONIUM BROMIDE 50 MG/5 ML VIAL As Ordered ONE (09:40)
[2021-08-29] MEDS ORDERED: LIDOCAINE 2% 100MG/5ML SDV (FOR ANES.) As Ordered ONE (09:50)
[2021-08-29] MEDS ORDERED: PHENYLephrine 500MCG 5ML (100MCG/ML) SYRINGE As Ordered ONE (09:53)
[2021-08-29] MEDS ORDERED: GLYCOPYRROLATE INJ 0.2 MG/ML 2 ML VIAL As Ordered ONE (09:57)
[2021-08-29] MEDS ORDERED: HYDROmorphone HCL 2 MG/ML 1ML VIAL As Ordered ONE (10:31)
[2021-08-29] MEDS ORDERED: OXYC1TAB23 PO (10:56)
--- NOTE | 2021-08-29 10:56 | ROOPDOC ---
[facility] Report Of Operation Report of Operation Date of procedure: August 29, 2021 Preoperative diagnosis: Satisfied parity. Postoperative diagnosis: Same Procedure: Laparoscopic bilateral salpingectomy Anesthesia: Gen. endotracheal Estimated blood loss 10 mL IV fluids replaced 900 mL lactated Ringer's Drains: In and out catheter 150 mL of urine Complications: None Preoperative antibiotics: None indicated Specimens: Bilateral fallopian tubes Intraoperative findings: Normal size, shape, contour of the uterus. Normal adnexa/ovaries bilaterally. Minimal pelvic adhesions, possibly d/t endometr iosis Procedure: The patient was counseled and consented on the risks, benefits, indications, and alternatives of the procedure. Informed consent was obtained. She was taken to the operating room with an IV running. She was placed on the operating table in the dorsal supine position. Gen. anesthesia was administered and the airway was secured without any difficulty. A timeout was performed per protocol. She was prepared and draped in the normal sterile fashion. Attention was turned to the pelvis. The bladder was drained with in and out sterile catheter. A speculum was placed into the vagina with good visualization of the cervix. A single- tooth tenaculum was placed on the anterior lip of the cervix and downward traction was applied. The cervix was sequentially dilated with Shabbir dilators up to a #16. A ZUMI uterine manipulator was placed without any difficulty. The single-tooth tenaculum was removed. The tenaculum sites were noted to be hemostatic. A sterile glove switch was performed. Attention was turned to the abdomen. A 5mm umbilical incision was made with the 11 blade. Through this incision, a Veress needle was placed into the intraperitoneal cavity. Intraperitoneal placement was confirmed with ease of flow of normal saline, a positive drop test and no return on aspiration. The opening pressure was 2 mmHg. The abdomen was insufflated with 2 L of CO2. The Veress needle was removed. A 5 mm laparoscopic trocar was placed under direct visualization without any difficulty, and intraperitoneal placement was confirmed. No incidental bleeding or injury was evident. The patient was placed in steep Trendelenburg. 2 additional laparoscopic port sites were placed through 5 mm incisions in the lower left quadrant. Each trocar/cannula was placed under direct visualization without any difficulty, incidental bleeding or injury. Attention was turned to the right fallopian tube. The right fallopian tube was followed out to the fimbriated end, grasped and elevated. The underlying mesosalpinx was sequentially clamped, coagulated and transected, until the level of the cornu was reached. At this level, the fallopian tube was clamped, coagulated and transected, thus amputating the fallopian tube. The fallopian tube was brought through the cannula without any difficulty and sent to pathology for permanent section. Attention was turned to the left fallopian tube. The left fallopian tube was followed out to the fimbriated end, grasped and elevated. The underlying mesosalpinx was sequentially clamped, coagulated and transected, until the level of the cornu was reached. At this level the fallopian tube was clamped, coagulated and transected, thus amputating the fallopian tube. The fallopian tube was brought to the cannula without any difficulty and sent to pathology for permanent section. Both right and left surgical sites were noted to be completely hemostatic. The gas was released from the abdomen. The patient was taken out of Trendelenburg position. The cannulas were removed. The skin incisions were closed with 4-0 Monocryl in subcuticular fashion and reinforced with Dermabond. The uterine manipulator was removed, the vagina was noted to be clear of any sponge or instrument. Sponge, needle and instrument counts were correct per protocol. The patient tolerated the entire procedure very well. She was transferred to the PACU in good and stable condition. DO EVI William JONATHAN R. DO Aug 29, 2021 10:56
[2021-08-29] MEDS ORDERED: fentaNYL 100 MCG/2 ML INJECTION (J3010) IV PRN (11:00)
[2021-08-29] MEDS ORDERED: oxyCODONE 5MG TAB PO PRN (11:00)
[2021-08-29] MEDS ORDERED: LR 1,000 ML IV SCH ×2 (11:00)
[2021-08-29] MEDS ORDERED: COLA100C5 PO (11:00)
[2021-08-29] MEDS ORDERED: IBUP80TA PO (11:00)
[2021-08-29] MEDS ORDERED: ONDANSETRON 4MG/2ML VIAL IV PRN (11:00)
[2021-08-29 13:05] VITALS: BP 106/65
== END 2021-08-29 13:05 | disposition home or self-care (01) ==
LOC: M SDC 07:36
PROVIDERS: ATTEND Obstetrics & Gynecology
DX: Z30.2 Encounter for sterilization (principal); F41.9 Anxiety disorder, unspecified; F32.9 Major depressive disorder, single episode, unspecified; G43.909 Migraine, unspecified, not intractable, without status migrainosus; Z79.899 Other long term (current) drug therapy
CPT/HCPCS: 36415; 58661; 84703; 85027; 86850; 86900; 86901; 88302; J0131; J1100; J1170; J1885; J2250; J2370; J2405; J2765; J3010

== ENCOUNTER → 2021-11-06 | Outpatient (CLI) | payer OTHER ==
[~2021-11-06] MED LIST changes: +COLA100C5 PO; +IBUP80TA PO; -LR 1,000 ML IV ONE; +OXYC1TAB23 PO
[2021-11-06 17:46] LABS: HEMATOCRIT 42.1 % (36.0-47.0); HEMOGLOBIN 14.4 g/dl (12.0-15.5); MEAN CORPUSCULAR HGB CONC 34.2 g/dl (32.0-36.5); MEAN CORPUSCULAR VOLUME 90.7 fl (80.0-96.0); PLATELET COUNT, AUTOMATED 231 10^3/uL (150-450); RED BLOOD COUNT 4.64 10^6/uL (4.00-5.40); WHITE BLOOD COUNT 6.5 10^3/uL (4.0-10.0)
== END ==
LOC: M LAB 16:39
PROVIDERS: ATTEND Obstetrics & Gynecology
DX: N93.9 Abnormal uterine and vaginal bleeding, unspecified (principal)

== ENCOUNTER → 2021-11-09 | Outpatient (CLI) | payer OTHER | LOC: M RAD 10:46 | PROVIDERS: ATTEND Obstetrics & Gynecology | DX: N93.9 Abnormal uterine and vaginal bleeding, unspecified (principal) ==

== ENCOUNTER → 2021-11-20 | Outpatient (CLI) | payer OTHER ==
[2021-11-20 19:22] LABS: FREE T4 0.94 NG/DL (0.76-1.46); THYROID STIMULATING HORMONE 0.285 uIU/ML (0.358-3.740)
== END ==
LOC: M LAB 17:22
PROVIDERS: ATTEND Obstetrics & Gynecology
DX: N93.9 Abnormal uterine and vaginal bleeding, unspecified (principal)

== ENCOUNTER → 2021-12-17 | Outpatient (CLI) | payer OTHER ==
[2021-12-17 18:53] LABS: THYROID STIMULATING HORMONE 0.497 uIU/ML (0.358-3.740); THYROXINE (T4) 8.6 UG/DL (4.5-12.0)
[2021-12-17 18:54] LABS: THYROID PEROXIDASE ANTIBODY 30.3 U/ML (<60.0)
== END ==
LOC: M LAB 17:47
PROVIDERS: ATTEND Obstetrics & Gynecology
DX: E03.8 Other specified hypothyroidism (principal)

== ENCOUNTER → 2022-05-14 | Outpatient (CLI) | payer OTHER | LOC: M WHC 14:57 | PROVIDERS: ATTEND Obstetrics & Gynecology | DX: N93.9 Abnormal uterine and vaginal bleeding, unspecified (principal); N83.201 Unspecified ovarian cyst, right side ==

== ENCOUNTER 2022-05-17 08:15 | Emergency (ER) | payer OTHER ==
[~2022-05-17] VITALS: Ht 154.9 cm; Wt 52.5 kg
[2022-05-17] MEDS ORDERED: ONDA4TAB6 (08:25)
[2022-05-17] MEDS ORDERED: SUMA100T2 (08:25)
[2022-05-17] MEDS ORDERED: ACET-683 PO (08:25)
[2022-05-17] MEDS ORDERED: ONDANSETRON 4MG ORAL DISINTEGRATING TAB PO ONE (08:30)
[2022-05-17] MEDS ORDERED: ACETAMINOPHEN 500 MG TAB PO ONE (08:30)
[2022-05-17] MEDS ORDERED: KETOROLAC 30 MG/ML 1ML VIAL IV ONE (09:45)
[2022-05-17] MEDS ORDERED: NS 1,050 ML IV ONE (09:45)
[2022-05-17] MEDS ORDERED: PIPERACILLIN/TAZOBACTAM SOD 3.375 GM in D5W MINI-BAG PLUS 50 ML IV ONE (09:50)
[2022-05-17 10:13] LABS: BASO % 0.2 % (0.0-1.0); HEMATOCRIT 38.6 % (36.0-47.0); HEMOGLOBIN 13.4 g/dl (12.0-15.5); LYMPH # 0.9 10^3/uL (1.5-5.0); LYMPH % 6.6 % (24.0-44.0); MEAN CORPUSCULAR HEMOGLOBIN 30.6 pg (27.0-33.0); MEAN CORPUSCULAR HGB CONC 34.7 g/dl (32.0-36.5); MEAN CORPUSCULAR VOLUME 88.1 fl (80.0-96.0); MONO % 14.5 % (2.0-8.0); NEUTROPHILS # 11.1 10^3/uL (1.5-8.5); PLATELET COUNT, AUTOMATED 180 10^3/uL (150-450); RED BLOOD COUNT 4.38 10^6/uL (4.00-5.40); WHITE BLOOD COUNT 14.2 10^3/uL (4.0-10.0)
[2022-05-17 10:35] LABS: ALBUMIN 3.8 GM/DL (3.2-5.2); ALT/SGPT 22 U/L (12-78); BILIRUBIN,DIRECT 0.2 MG/DL (0.0-0.2); BILIRUBIN,TOTAL 0.5 MG/DL (0.2-1.0); BLOOD UREA NITROGEN 9 MG/DL (7-18); CALCIUM LEVEL 8.5 MG/DL (8.5-10.1); CARBON DIOXIDE LEVEL 25 MEQ/L (21-32); CHLORIDE LEVEL 100 MEQ/L (98-107); CREATININE FOR GFR 0.72 MG/DL (0.55-1.30); GLOMERULAR FILTRATION RATE > 60.0 (>60); GLUCOSE, FASTING 108 MG/DL (70-100); LIPASE 618 U/L (73-393); POTASSIUM SERUM 3.5 MEQ/L (3.5-5.1); SODIUM LEVEL 134 MEQ/L (136-145); TOTAL PROTEIN 7.5 GM/DL (6.4-8.2)
[2022-05-17 10:43] LABS: MONO # 2.1 10^3/uL (0.0-0.8)
[2022-05-17 10:48] LABS: ERYTHROCYTE SEDIMENTATION RATE 35 mm/hr (0-20)
[2022-05-17] MEDS ORDERED: ACETAMINOPHEN 325 MG TAB PO ONE (13:50)
[2022-05-17] MEDS ORDERED: BACT800T5 PO (14:09)
[2022-05-17 14:48] VITALS: BP 63/90
[2022-05-17 16:06] LABS: GC DNA AMPLIFICATION NEGATIVE (NEGATIVE)
== END 2022-05-17 15:14 | disposition home or self-care (01) ==
LOC: M ED 08:15
DX: N39.0 Urinary tract infection, site not specified (principal); N83.201 Unspecified ovarian cyst, right side; G43.909 Migraine, unspecified, not intractable, without status migrainosus; K21.9 Gastro-esophageal reflux disease without esophagitis; Z79.899 Other long term (current) drug therapy
CPT/HCPCS: 74176; 76705; 76830; 76856; 80048; 80076; 81001; 83605; 83690; 84702; 85025; 85652; 86140; 87040; 87086; 87661; 87810; 87850; 93976; 96365; 96366; 96375; 99284; J1885; J2543